=== PATIENT | female | born 1985 | race Caucasian/White ===

== ENCOUNTER 2018-02-10 21:15 | Emergency (ER) | payer MEDICAID ==
[~2018-02-10] VITALS: Ht 160 cm; Wt 86.2 kg
[~2018-02-10 21:15] MED LIST: IBUP-974 PO
[2018-02-10 21:28] VITALS: BP 104/67
[2018-02-10 21:56] LABS: APPEARANCE,URINE CLEAR (CLEAR); BILIRUBIN,URINE NEGATIVE (NEGATIVE); BLOOD, URINE TRACE-L (NEGATIVE); COLOR,URINE YELLOW (YELLOW); LEUKOCYTE ESTERASE ,URINE NEGATIVE (NEGATIVE); NITRITE, URINE NEGATIVE (NEGATIVE); PH,URINE 5.5 (5.0-9.0); UGLUCOSE NEGATIVE (NEGATIVE)
[2018-02-10 22:10] LABS: RBC,URINE 0-5 (RARE) /HPF (0-5); WBC,URINE 0-5 (RARE) /HPF (0-5)
[2018-02-10 22:58] VITALS: BP 105/67
== END 2018-02-10 22:58 | disposition home or self-care (01) ==
LOC: MED 21:15
DX: N83.202 Unspecified ovarian cyst, left side (principal)
CPT/HCPCS: 76856; 81001; 81025; 99285; Q0092

== ENCOUNTER 2018-02-12 08:23 | Emergency (ER) | payer MEDICAID ==
[~2018-02-12] VITALS: Ht 160 cm; Wt 86.2 kg
[2018-02-12 08:25] VITALS: BP 116/81
[2018-02-12] MEDS: KETOROLAC 60 MG/2 ML VIAL IM ONE (09:22)
[2018-02-12 09:40] VITALS: BP 114/76
== END 2018-02-12 09:40 | disposition home or self-care (01) ==
LOC: MED 08:23
DX: N83.209 Unspecified ovarian cyst, unspecified side (principal); Z79.899 Other long term (current) drug therapy
CPT/HCPCS: 81002; 81025; 96372; 99283; J1885

== ENCOUNTER 2018-04-12 08:21 | Emergency (ER) | payer MEDICAID ==
[~2018-04-12] VITALS: Ht 160 cm; Wt 85.0 kg
[2018-04-12 08:37] VITALS: BP 123/64
[2018-04-12] MEDS ORDERED: DIPHENOXYLATE /ATROPINE 2.5 MG TAB PO ONE (08:55)
[2018-04-12] MEDS ORDERED: ONDANSETRON 4 MG ODT PO ONE (08:55)
--- NOTE | 2018-04-12 09:19 | NUR ---
PT COMES TO ER WITH C/O EPIGASTRIC PAIN, N/V/D X 2 DAYS, DENIES DYSURIA. DENIES ANY FEVERS/CHILLS. ABD ROUND, SOFT, NT TO PALPATION. RESP EVEN AND UNLABORED, ON RA@99%. SKIN W/D/I. LISSAIITMILAD FOR ER MD STEINER. URINE PROVIDED-NEG FOR PREG.
--- NOTE | 2018-04-12 09:41 | NUR ---
PT REPORTS FEELING BETTER AFTER MEDS GIVEN. NO DIARRHEA EPISODES WHILE HERE IN ER.
[2018-04-12 10:10] VITALS: BP 119/71
--- NOTE | 2018-04-12 10:13 | NUR ---
Patient discharged with v/s stable. Written and verbal after care instructions given and explained. Patient alert, oriented and verbalized understanding of instructions. Ambulatory with steady gait. All questions addressed prior to discharge. ID band removed. Patient advised to follow up with PMD. Rx of LOMOTIL, TESSALON,ZOFRAN,PEPCID given. Patient educated on indication of medication including possible reaction and side effects. Opportunity to ask questions provided and answered.
== END 2018-04-12 10:32 | disposition home or self-care (01) ==
LOC: MED 08:21
DX: J06.9 Acute upper respiratory infection, unspecified (principal); R11.10 Vomiting, unspecified; R19.7 Diarrhea, unspecified; Z79.899 Other long term (current) drug therapy
CPT/HCPCS: 81002; 81025; 99283; S0119

== ENCOUNTER 2020-05-10 23:06 | Emergency (ER) | payer MEDICAID, SELFPAY ==
[~2020-05-10] VITALS: Ht 165.1 cm; Wt 97.5 kg
[2020-05-10 23:31] VITALS: BP 117/83
--- NOTE | 2020-05-11 00:19 | NUR ---
PT SEEN AND D/C BY DR RUSSELL. NO NURSING CARE PROVIDED. RX OF TYLENOL, NORCO, AND MOTRIN GIVEN. VERFIED NAME AND PRIOR TO D/C. ALL QUESTIONS ANSWERED BY .
--- NOTE | 2020-05-17 12:03 | NUR ---
COVID RESULTS RECEIVED FROM LAB. POSITIVE RESULTS. HARD COPY REQUESTED FROM LAB. COPY OF RESULT PLACED IN INFECTION CONTROL'S MAILBOX.
== END 2020-05-11 00:19 | disposition home or self-care (01) ==
LOC: MED 23:06 → EEVIPCON 23:06 → MED 05-11 00:19
DX: U07.1 COVID-19 (principal)
CPT/HCPCS: 99283; U0003

== ENCOUNTER 2022-02-18 18:00 | Emergency (ER) | payer MEDICAID ==
[~2022-02-18] VITALS: Ht 157.5 cm; Wt 93.9 kg
[2022-02-18 18:03] VITALS: BP 119/75
[2022-02-18 19:10] LABS: BASOPHILS # (AUTO) 0.2 K/uL (0.00-0.22); BASOPHILS % (AUTO) 1.3 % (0.0-2.0); EOSINOPHILS # (AUTO) 0.4 K/uL (0-0.4); EOSINOPHILS % (AUTO) 2.9 % (0.0-4.0); HEMATOCRIT 42.5 % (36-48); HEMOGLOBIN 14.2 g/dL (12.0-16.0); LYMPHOCYTES # (AUTO) 4.9 K/uL (2.5-16.5); LYMPHOCYTES % (AUTO) 36.3 % (20.5-51.1); MEAN CORPUSCULAR HEMOGLOBIN 29 pg (27-31); MEAN CORPUSCULAR HGB CONC 33 g/dL (33-37); MEAN CORPUSCULAR VOLUME 85.4 fL (80-94); MONOCYTES # (AUTO) 1.3 K/uL (0.8-1.0); MONOCYTES % (AUTO) 9.3 % (1.7-9.3); NEUTROPHILS # (AUTO) 6.8 K/uL (1.8-7.7); NEUTROPHILS % (AUTO) 50.2 % (42.2-75.2); PLATELET COUNT (AUTO) 316 K/uL (140-450); RED BLOOD CELL COUNT(AUTO) 4.98 MIL/uL (4.20-5.40); RED CELL DISTRIBUTION WIDTH 14.1 % (11.6-13.7); WHITE BLOOD COUNT (AUTO) 13.6 K/uL (4.8-10.8)
[2022-02-18] MEDS: LORazepam 1 MG TAB PO ONE (19:13)
[2022-02-18 19:35] LABS: ALBUMIN 3.9 g/dL (3.4-5.0); CARBON DIOXIDE 26.1 mmol/L (21-32); CREATININE 0.7 mg/dL (0.6-1.3); POTASSIUM 4.1 mmol/L (3.5-5.1); TOTAL BILIRUBIN 0.5 mg/dL (0.0-1.0)
[2022-02-18] MEDS ORDERED: ATI.5 PO (19:57)
[2022-02-18] MEDS ORDERED: ACET-10509 PO (19:57)
[2022-02-18] MEDS: ACETAMINOPHEN 325 MG TAB PO ONE (19:57)
[2022-02-18 20:09] VITALS: BP 119/75
== END 2022-02-18 20:11 | disposition home or self-care (01) ==
LOC: MED 18:00
DX: R51.9 Headache, unspecified (principal); F41.0 Panic disorder [episodic paroxysmal anxiety]; R20.2 Paresthesia of skin; Z79.899 Other long term (current) drug therapy; Z79.1 Long term (current) use of non-steroidal anti-inflammatories (NSAID)
CPT/HCPCS: 36415; 71045; 80053; 81002; 81025; 85025; 93005; 99285

== ENCOUNTER 2022-06-02 08:32 | Emergency (ER) | payer MEDICAID ==
[~2022-06-02] VITALS: Ht 160 cm; Wt 96.2 kg
[~2022-06-02 08:32] MED LIST changes: +ACET-10509 PO; +ATI.5 PO
--- NOTE | 2022-06-02 08:40 | NUR ---
Patient ambulated to bed 9 at this time.
[2022-06-02 08:44] VITALS: BP 144/101
[2022-06-02] MEDS ORDERED: ONDANSETRON 4 MG/2 ML VIAL IVP ONE (08:50)
[2022-06-02] MEDS ORDERED: NACL 0.9% 1,000 ML IV SCH (08:50)
[2022-06-02] MEDS ORDERED: KETOROLAC 30 MG/ML VIAL IVP ONE (08:50)
--- NOTE | 2022-06-02 09:00 | NUR ---
36 y/o female bib self, c/o epigastric pain that radiates to back since last night. pt states she also feels nausea and has had 1 episode of diarrhea. denies anyone sick in household sick with same s/s. skin is pink/warm/dry. a&o x4, malay speaking, with even and steady gait. lungs clear bl, heart rate even and regular. pt denies dysuria, hematuria, urinary frequency or retention, or anyone sick in the household with the same symptoms. pt denies any fever, cp, sob, or cough at this time. pt states pain is 9/10 at this time. patient positioned for comfort. hob elevated. bed down. ermd made aware of pt. pmh: denies nka med: tylenol
[2022-06-02 09:07] LABS: BASOPHILS # (AUTO) 0.1 K/uL (0.00-0.22); BASOPHILS % (AUTO) 1.2 % (0.0-2.0); EOSINOPHILS # (AUTO) 0.2 K/uL (0-0.4); EOSINOPHILS % (AUTO) 1.8 % (0.0-4.0); HEMATOCRIT 40.2 % (36-48); HEMOGLOBIN 13.5 g/dL (12.0-16.0); LYMPHOCYTES # (AUTO) 2.6 K/uL (2.5-16.5); LYMPHOCYTES % (AUTO) 26.8 % (20.5-51.1); MEAN CORPUSCULAR HEMOGLOBIN 29 pg (27-31); MEAN CORPUSCULAR HGB CONC 34 g/dL (33-37); MEAN CORPUSCULAR VOLUME 85.3 fL (80-94); MONOCYTES # (AUTO) 0.8 K/uL (0.8-1.0); MONOCYTES % (AUTO) 8.3 % (1.7-9.3); NEUTROPHILS # (AUTO) 5.9 K/uL (1.8-7.7); NEUTROPHILS % (AUTO) 61.9 % (42.2-75.2); PLATELET COUNT (AUTO) 301 K/uL (140-450); RED BLOOD CELL COUNT(AUTO) 4.71 MIL/uL (4.20-5.40); WHITE BLOOD COUNT (AUTO) 9.5 K/uL (4.8-10.8)
[2022-06-02 09:35] LABS: ALBUMIN 3.5 g/dL (3.4-5.0); ANION GAP 13.2 (8-16); CARBON DIOXIDE 25.8 mmol/L (21-32); CREATININE 0.5 mg/dL (0.6-1.3); TOTAL BILIRUBIN 0.3 mg/dL (0.0-1.0)
--- NOTE | 2022-06-02 09:44 | NUR ---
us at bedside
[2022-06-02] MEDS ORDERED: FAMO-92 PO (10:21)
[2022-06-02] MEDS ORDERED: ONDA-188 PO (10:21)
[2022-06-02] MEDS ORDERED: ACET-8386 PO (11:14)
--- NOTE | 2022-06-02 11:14 | NUR ---
Patient discharged with v/s stable. Written and verbal after care instructions FOR GASTRITIS AND ABDOMINAL PAIN given and explained. Patient alert, oriented and verbalized understanding of instructions. Ambulatory with . All questions addressed prior to discharge. ID band removed. Patient advised to follow up with PMD. Rx of PEPCID, ZOFRAN given. Opportunity to ask questions provided and answered.
[2022-06-02 11:15] VITALS: BP 144/85
== END 2022-06-02 11:14 | disposition home or self-care (01) ==
LOC: MED 08:32
DX: K21.9 Gastro-esophageal reflux disease without esophagitis (principal); Z98.890 Other specified postprocedural states
CPT/HCPCS: 36415; 76705; 80053; 81002; 81025; 83690; 85025; 96361; 96374; 96375; 99284; J1885; J2405; J7030; Q0092